=== PATIENT | female | born 1980 | race Caucasian/White ===

== ENCOUNTER 2016-11-29 17:35 | Inpatient (IN) | payer BC ==
[~2016-11-29] VITALS: Ht 170.2 cm; Wt 105.0 kg
[~2016-11-29 17:35] MED LIST: FLEXERIL10 MG PO; LIDOCAINE700 MG TD; MOTRIN600 MG PO; MOTRIN800 MG PO; Motrin PO; OXYCODONE HCL15 MG PO; PERCOCET 5/31 TABLET PO; PROMETHAZINE HC25 M1 PO; Percocet 5/325,Endoc PO; VALIUM10 MG PO; [UNRECOGNIZED DRUG - OTHER]
[2016-11-29 17:55] LABS: ADD MIUA? YES; BILIRUBIN NEGATIVE; BLOOD NEGATIVE; COLOR YELLOW ((YELLOW)); GLUCOSE (STRIP) NEGATIVE; KETONES NEGATIVE; LEUKOCYTES MODERATE; NITRITE NEGATIVE; PROTEIN (STRIP) NEGATIVE; SPECIFIC GRAVITY 1.014 (1.000-1.030); UROBILINOGEN 0.2 MG/DL (0.2-1.0)
[2016-11-29 18:01] LABS: BASOPHIL COUNT 0.1 K/uL (0-0.1); EOSINOPHIL (%) 0.1 % (0-5); HEMATOCRIT 37.6 % (36.0-46.0); IMMATURE GRANULOCYTE (%) 0.5 % (0.0-0.7); IMMATURE GRANULOCYTE COUNT 0.1 K/uL; INSTRUMENT ABS NEUTROPHIL CT 15.4 K/uL; LYMPHOCYTE COUNT 1.6 K/uL (1.0-2.8); MCH 29.6 PG (29.0-34.0); MCHC 32.7 G/DL (30.0-36.0); MCV 90.4 FL (83-99); MONOCYTE (%) 4.1 % (3-12); MONOCYTE COUNT 0.7 K/uL (0-0.8); NEUTROPHIL (%) 86.1 % (45-76); NEUTROPHIL COUNT 15.4 K/uL (1.8-6.4); PLATELET COUNT 283 K/uL (156-360); RBC DIS.WIDTH-CV 13.2 % (11.8-14.6); RBC DIS.WIDTH-SD 43.3 % (39-53); RED BLOOD COUNT 4.16 M/uL (3.80-5.20); WHITE BLOOD COUNT 17.9 K/uL (4.1-10.2)
[2016-11-29 18:08] LABS: BACTERIA RARE /HPF; EPITHELIAL CELLS 1+ /HPF; MUCUS TRACE /LPF; RED BLOOD CELLS NONE SEEN /HPF (0-5); UCUL ADDED? NO; WHITE BLOOD CELLS 0-5 /HPF (0-5)
[2016-11-29 18:10] LABS: CHLORIDE 101 mEq/L (99-109); POTASSIUM 4.3 mEq/L (3.7-5.4); SODIUM 136 mEq/L (136-147)
[2016-11-29 18:12] LABS: GLUCOSE 133 mg/dL (70-99)
[2016-11-29 18:13] LABS: ANION GAP 13 MEQ/L (2-14)
[2016-11-29 18:14] LABS: TOTAL BILIRUBIN 0.3 mg/dL (0.0-1.0)
[2016-11-29 18:15] LABS: ALKALINE PHOSPHATASE 51 IU/L (3-129); GFR ESTIMATE (CALCULATED) > 59 mL/min/
[2016-11-29 18:17] LABS: UREA NITROGEN (BUN) 11 mg/dL (9-23)
[2016-11-29 18:22] LABS: TROP-I INTERPRETATION NEGATIVE; TROPONIN-I < 0.01 ng/mL (0.0-0.30)
[2016-11-29 19:07] LABS: D-DIMER ELISA 0.32 mg/L FEU (< 0.57)
[2016-11-29 19:18] LABS: INFLUENZA A VIRAL ANTIGEN NEGATIVE; INFLUENZA B VIRAL ANTIGEN NEGATIVE
[2016-11-29 21:38] LABS: APPEARANCE PINK; RED CELL AREA COUNTED 0.4; RED CELL COUNT 4850 /MM^3 (0-1); RED CELL DILUTION 1; WBC AREA COUNTED 18; WBC DILUTION 1; WHITE CELL COUNT 14 /MM^3 (0-5); WHITE CELL RAW COUNT 25
[2016-11-29 21:42] LABS: CSF TUBE NUMBER (RECHECK) TUBE #1
[2016-11-29 21:43] LABS: APPEARANCE (RECHECK) CLEAR/COLORLESS
[2016-11-29 22:03] LABS: RED CELL AREA COUNTED 8; RED CELL COUNT (RECHECK) 1386 /MM^3 (0-1); RED CELL DILUTION 1
[2016-11-29 22:10] LABS: CSF EOSINOPHILS 0 % (0-25); MONO RAW COUNT 18; MONONUCLEAR WBC'S 18 % (50-90); POLY RAW COUNT 82; POLYNUCLEAR WBC'S 82 % (0-3)
[2016-11-29] MEDS ORDERED: METFORMIN HCL500 M1 PO (22:10)
[2016-11-29] MEDS ORDERED: DULOXETINE HCL30 MG PO (22:11)
[2016-11-29] MEDS ORDERED: VIENVA-28 TABL1 EACH PO (22:11)
[2016-11-29] MEDS ORDERED: RAMIPRIL5 MG PO (22:12)
[2016-11-29] MEDS ORDERED: amlodipine PO (22:15)
[2016-11-29 22:24] LABS: CREATINE KINASE 141 IU/L (1-294)
[2016-11-30] VITALS (7 sets, daily range): BP systolic 133–175; BP diastolic 71–90
[2016-11-30 02:21] LABS: AMPHETAMINE NEGATIVE (500 ng/mL); BARBITURATES NEGATIVE (200 ng/mL); BENZODIAZEPINES NEGATIVE (150 ng/mL); COCAINE NEGATIVE (150 ng/mL); INTERNAL CONTROLS VALID? YES; METHADONE NEGATIVE (200 ng/mL); METHAMPHETAMINE NEGATIVE (500 ng/mL); OPIATES (MORPHINE) NEGATIVE (100 ng/mL); OXYCODONE NEGATIVE (100 ng/mL); PHENCYCLIDINE NEGATIVE (25 ng/mL); PROPOXYPHENE NEGATIVE (300 ng/mL); THC CANNABINOIDS NEGATIVE (50 ng/mL); TRICYCLIC ANTIDEPRESSANTS NEGATIVE (300 ng/mL)
[2016-11-30 08:31] LABS: POINT-OF-CARE METER ID UU13113698; POINT-OF-CARE USER ID ENVKC36
[2016-11-30 09:21] LABS: BASOPHIL COUNT 0.1 K/uL (0-0.1); EOSINOPHIL (%) 0.1 % (0-5); HEMATOCRIT 35.4 % (36.0-46.0); IMMATURE GRANULOCYTE (%) 0.5 % (0.0-0.7); IMMATURE GRANULOCYTE COUNT 0.1 K/uL; INSTRUMENT ABS NEUTROPHIL CT 13.6 K/uL; LYMPHOCYTE COUNT 2.3 K/uL (1.0-2.8); MCH 29.2 PG (29.0-34.0); MCHC 32.2 G/DL (30.0-36.0); MCV 90.8 FL (83-99); MONOCYTE (%) 5.3 % (3-12); MONOCYTE COUNT 0.9 K/uL (0-0.8); NEUTROPHIL COUNT 13.6 K/uL (1.8-6.4); PLATELET COUNT 272 K/uL (156-360); RBC DIS.WIDTH-CV 13.5 % (11.8-14.6); RBC DIS.WIDTH-SD 44.6 % (39-53)
[2016-11-30 11:56] LABS: POINT-OF-CARE METER ID UU13113698
[2016-11-30 17:08] LABS: POINT-OF-CARE METER ID UU13113698; POINT-OF-CARE USER ID ENVKC36
[2016-11-30 20:50] LABS: POINT-OF-CARE METER ID UU13113698
[2016-12-01] VITALS: BP 137/80
[2016-12-01 05:20] VITALS: BP 134/72
[2016-12-01 06:19] LABS: BASOPHIL COUNT 0.1 K/uL (0-0.1); EOSINOPHIL (%) 0.3 % (0-5); EOSINOPHIL COUNT 0.1 K/uL (0-0.3); HEMATOCRIT 32.7 % (36.0-46.0); IMMATURE GRANULOCYTE (%) 0.8 % (0.0-0.7); IMMATURE GRANULOCYTE COUNT 0.1 K/uL; INSTRUMENT ABS NEUTROPHIL CT 11.6 K/uL; MCH 30.1 PG (29.0-34.0); MCHC 32.4 G/DL (30.0-36.0); MCV 92.9 FL (83-99); MEAN PLAT.VOLUME 10.9 uM^3 (9.5-12.4); MONOCYTE (%) 5.5 % (3-12); MONOCYTE COUNT 0.9 K/uL (0-0.8); NEUTROPHIL COUNT 11.6 K/uL (1.8-6.4); PLATELET COUNT 242 K/uL (156-360); RBC DIS.WIDTH-CV 13.4 % (11.8-14.6); RBC DIS.WIDTH-SD 45.8 % (39-53); RED BLOOD COUNT 3.52 M/uL (3.80-5.20); WHITE BLOOD COUNT 15.7 K/uL (4.1-10.2)
[2016-12-01 06:45] LABS: ANION GAP 8 MEQ/L (2-14); CHLORIDE 105 MEQ/L (99-109); GFR ESTIMATE (CALCULATED) > 59 mL/min/; GLUCOSE 129 mg/dL (70-99); POTASSIUM 4.2 MEQ/L (3.7-5.4); SAMPLE HEMOLYSIS CHECK 0; SAMPLE ICTERIC CHECK 0; SAMPLE LIPEMIA CHECK 0; SODIUM 138 MEQ/L (136-147); UREA NITROGEN (BUN) 5 mg/dL (9-23)
[2016-12-01 07:45] VITALS: BP 110/59
[2016-12-01 08:15] LABS: POINT-OF-CARE USER ID ENVKC36
[2016-12-01 12:05] LABS: POINT-OF-CARE USER ID ENVKC36
[2016-12-01 13:15] VITALS: BP 135/97
[2016-12-01 16:26] VITALS: BP 153/86
[2016-12-01 16:54] LABS: POINT-OF-CARE USER ID ENVKC36
[2016-12-01 20:33] LABS: POINT-OF-CARE METER ID UU14174216
[2016-12-01 21:16] VITALS: BP 143/75
[2016-12-02 04:49] VITALS: BP 113/73
[2016-12-02 05:28] LABS: EOSINOPHIL (%) 0.1 % (0-5); HEMATOCRIT 35.8 % (36.0-46.0); IMMATURE GRANULOCYTE (%) 0.7 % (0.0-0.7); IMMATURE GRANULOCYTE COUNT 0.1 K/uL; INSTRUMENT ABS NEUTROPHIL CT 9.4 K/uL; LYMPHOCYTE COUNT 1.8 K/uL (1.0-2.8); MCH 29.7 PG (29.0-34.0); MCHC 32.4 G/DL (30.0-36.0); MCV 91.6 FL (83-99); MEAN PLAT.VOLUME 11.2 uM^3 (9.5-12.4); MONOCYTE (%) 1.8 % (3-12); MONOCYTE COUNT 0.2 K/uL (0-0.8); NEUTROPHIL (%) 81.6 % (45-76); NEUTROPHIL COUNT 9.4 K/uL (1.8-6.4); PLATELET COUNT 305 K/uL (156-360); RBC DIS.WIDTH-CV 13.3 % (11.8-14.6); RBC DIS.WIDTH-SD 45.1 % (39-53); RED BLOOD COUNT 3.91 M/uL (3.80-5.20); WHITE BLOOD COUNT 11.5 K/uL (4.1-10.2)
[2016-12-02 05:50] LABS: ANION GAP 11 MEQ/L (2-14); CHLORIDE 102 MEQ/L (99-109); GFR ESTIMATE (CALCULATED) > 59 mL/min/; GLUCOSE 156 mg/dL (70-99); SAMPLE HEMOLYSIS CHECK 0; SAMPLE ICTERIC CHECK 0; SAMPLE LIPEMIA CHECK 0; SODIUM 136 MEQ/L (136-147); UREA NITROGEN (BUN) 12 mg/dL (9-23)
[2016-12-02 06:40] LABS: POTASSIUM 5.1 MEQ/L (3.7-5.4)
[2016-12-02 07:59] VITALS: BP 133/77
[2016-12-02 08:05] LABS: POINT-OF-CARE METER ID UU13113698
[2016-12-02 14:16] VITALS: BP 129/81
[2016-12-02] MEDS ORDERED: TORADOL10 MG PO (15:42)
[2016-12-02] MEDS ORDERED: DOXYCYCLINE HY100 M3 PO (15:43)
[2016-12-02] MEDS ORDERED: FLONASE16 G1 BOTH NARES (15:45)
[2016-12-02] MEDS ORDERED: PREDNISONE20 MG PO (15:45)
== END 2016-12-02 17:00 | disposition home or self-care (01) | DRG 864 ==
LOC: EME 17:35 → EDOF 23:09 → 4EAST 23:09
PROVIDERS: Emergency Medicine; Hospitalist; Internal Medicine
PROC: 009U3ZX Drainage of Spinal Canal, Percutaneous Approach, Diagnostic (ICD-10-PCS; principal; 2016-11-29)
DX: R50.9 Fever, unspecified (principal); J01.90 Acute sinusitis, unspecified; B34.9 Viral infection, unspecified; J02.9 Acute pharyngitis, unspecified; E87.2 Acidosis; E11.9 Type 2 diabetes mellitus without complications; I10 Essential (primary) hypertension; G89.29 Other chronic pain; M54.5 Low back pain; M54.2 Cervicalgia; R19.7 Diarrhea, unspecified; F32.9 Major depressive disorder, single episode, unspecified; E66.9 Obesity, unspecified; Z68.37 Body mass index [BMI] 37.0-37.9, adult; Z87.891 Personal history of nicotine dependence
CPT/HCPCS: 70486; 71010; 71260; 74177; 80048; 80053; 80202; 80306 90; 81003; 82550; 82945; 82948; 83605; 84157; 84484; 85025; 85027; 85379; 87040; 87070; 87205; 87502; 87651 90; 89051; 99281; 99285; J0696; J1650; J1815; J1885; J2270; J3370; J7030; J7050; J7512